=== PATIENT | female | born 1945 | race African-American/Black ===

== ENCOUNTER 2018-12-14 11:09 | Inpatient (IN) | payer MEDICARE ==
[~2018-12-14] VITALS: Ht 170.2 cm; Wt 80.8 kg
[~2018-12-14 11:09] MED LIST: ACC40 PO; CLON0.1T PO; FLUT1DIS3 INH
[2018-12-14] MEDS ORDERED: ALBUTEROL (0.083%) 2.5MG/3ML NEB HHN STA (11:36)
[2018-12-14] MEDS ORDERED: KETOROLAC 30MG/ML VIAL IV STA (11:36)
[2018-12-14 11:53] LABS: HEMOGLOBIN. 13.2 g/dL (12.0-16.0); MEAN CORPUSCULAR HEMOGLOBIN 37.9 pg (28.0-32.0); MEAN CORPUSCULAR VOLUME 111.9 fL (81.0-99.0); MEAN PLATELET VOLUME 8.5 fl (7.4-10.4); PLATELET 209 x1000/uL (130-400); RED BLOOD CELL COUNT 3.48 mill/uL (4.2-5.4); RED CELL DISTRIBUTION WIDTH 14.1 % (11.6-14.6)
[2018-12-14 11:56] LABS: CHLORIDE 104 mEq/L (98-107)
[2018-12-14 12:12] LABS: PLATELET ESTIMATE NORMAL
[2018-12-14] MEDS ORDERED: PIPERACILLIN/TAZ 3.375G PREMIX 50 ML IV ONE (12:30)
[2018-12-14] MEDS ORDERED: VANCOMYCIN 1 G PREMIX 200 ML IV ONE (12:30)
[2018-12-14] MEDS ORDERED: METHYLPREDNISOLONE SOD SUCC 125 MG/2 ML VIAL IV ONE (13:30)
[2018-12-14] MEDS ORDERED: MORPHINE SULFATE 4 MG/ML CPJ (NOT FOR IM USE) IV ONE (14:00)
[2018-12-14] MEDS ORDERED: DOCUSATE SODIUM 100MG CAPSULE PO PRN (14:15)
[2018-12-14] MEDS ORDERED: MAGNESIUM/ALUMINUM HYDROXIDE/SIMETHICONE 30ML UDC PO PRN (14:15)
[2018-12-14] MEDS ORDERED: ONDANSETRON HCL 4MG/2ML INJ IV PRN (14:15)
[2018-12-14] MEDS ORDERED: LORAZEPAM 0.5MG TABLET PO PRN (14:15)
[2018-12-14] MEDS ORDERED: DIPHENHYDRAMINE 50MG/ML VIAL IV PRN (14:15)
[2018-12-14] MEDS ORDERED: GUAIFENESIN 200MG/10ML SUGAR FREE UDC PO PRN (14:15)
[2018-12-14] MEDS ORDERED: ACETAMINOPHEN 325MG TABLET PO PRN (14:15)
[2018-12-14] MEDS ORDERED: NA PHOS,M-B/NA PHOS,DI-BA ENEMA 118ML PR PRN (14:15)
[2018-12-14] MEDS ORDERED: ACETAMINOPHEN 650MG SUPP PR PRN (14:15)
[2018-12-14] MEDS ORDERED: IPRATROPIUM/ALBUTEROL 0.5-3(2.5)MG/3ML NEB INH PRN (14:15)
[2018-12-14] MEDS ORDERED: DEXTROSE 50% WATER 50ML SYRINGE IV PRN (14:15)
[2018-12-14] MEDS ORDERED: IOHEXOL-350 100 ML BOTTLE ONE (15:17)
[2018-12-14 16:17] LABS: BG BASE EXCESS -4.2 mmol/L (-2.0-2.0); BG CARBOXYHEMOGLOBIN 1.5 % (0.5-1.5); BG DEOXYHEMOGLOBIN 5.2 % (0.0-5.0); BG FRACTION INSPIRED OXYGEN 28; BG HCO3 ACT 18.9 mmol/L (22.0-26.0); BG METHEMOGLOBIN 0.2 % (0.0-1.5); BG OXYGEN SATURATION 94.7 % (92.0-98.5); BG OXYHEMOGLOBIN 93.1 % (94.0-97.0); BG PCO2 29.3 mmHg (35.0-45.0); BG PH 7.428 (7.350-7.450); BG PO2 76.4 mmHg (75.0-100.0); BG SAMPLE SITE RIGHT BRACHIAL; BG TOTAL HEMOGLOBIN 13.5 g/dL (12.0-18.0); BG VENT MODE NASAL CANNULA
[2018-12-14 16:17] LABS: PROTHROMBIN TIME 10.5 sec (9.6-11.0)
[2018-12-14 16:37] VITALS: BP 140/68
[2018-12-14] MEDS: DEXT 5%/0.45% NACL 1000ML 1,000 ML IV SCH (16:39)
[2018-12-14] MEDS: METHYLPREDNISOLONE SOD SUCC 40 MG/ML VIAL IV SCH (16:39)
[2018-12-14] MEDS: BLOOD SUGAR DIAGNOSTIC STRIP TEST SCH ×2 (16:57→21:07)
[2018-12-14] MEDS: IPRATROPIUM/ALBUTEROL 0.5-3(2.5)MG/3ML NEB INH SCH ×2 (17:09→20:37)
[2018-12-14] MEDS: INSULIN LISPRO 100 UNITS/ML SUBCUT SCH ×2 (17:20→21:07)
[2018-12-14 18:00] VITALS: BP 133/74
[2018-12-14] MEDS: PIPERACILLIN/TAZ 2.25G PREMIX 50 ML IV SCH (18:44)
[2018-12-14 20:00] VITALS: BP 140/67
[2018-12-14] MEDS: VANCOMYCIN 750 MG PREMIX 150 ML IV SCH (21:09)
[2018-12-14 22:00] VITALS: BP 135/68
[2018-12-15] VITALS (12 sets, daily range): BP systolic 81–124; BP diastolic 47–64
[2018-12-15] MEDS: PIPERACILLIN/TAZ 2.25G PREMIX 50 ML IV SCH ×5 (00:07→23:16)
[2018-12-15] MEDS: METHYLPREDNISOLONE SOD SUCC 40 MG/ML VIAL IV SCH ×3 (00:07→20:12)
[2018-12-15] MEDS: IPRATROPIUM/ALBUTEROL 0.5-3(2.5)MG/3ML NEB INH SCH ×6 (00:20→21:07)
[2018-12-15 06:27] LABS: HEMATOCRIT. 35.4 % (36.0-48.0); HEMOGLOBIN. 12.4 g/dL (12.0-16.0); MEAN CORPUSCULAR HEMOGLOBIN 38.6 pg (28.0-32.0); MEAN CORPUSCULAR VOLUME 110.2 fL (81.0-99.0); MEAN PLATELET VOLUME 8.6 fl (7.4-10.4); PLATELET 161 x1000/uL (130-400); RED BLOOD CELL COUNT 3.21 mill/uL (4.2-5.4); RED CELL DISTRIBUTION WIDTH 13.9 % (11.6-14.6)
[2018-12-15] MEDS: BLOOD SUGAR DIAGNOSTIC STRIP TEST SCH ×4 (06:44→20:15)
[2018-12-15 07:03] LABS: CHLORIDE 100 mEq/L (98-107)
[2018-12-15 07:19] LABS: T4 FREE 1.21 ng/dL (0.76-1.46)
[2018-12-15 07:20] LABS: HDL CHOLESTEROL 107 mg/dL (40-59)
[2018-12-15 07:21] LABS: LDL CHOLESTEROL 42 mg/dL (5-100)
[2018-12-15] MEDS: INSULIN LISPRO 100 UNITS/ML SUBCUT SCH ×4 (08:51→20:15)
[2018-12-15] MEDS ORDERED: INSULIN GLARGINE UD 100 UNITS/ML SYR SUBCUT SCH (11:00)
[2018-12-15] MEDS: HYDROCODONE/ACETAMINOPHEN 5/325MG TABLET PO PRN ×2 (13:38→21:25)
[2018-12-15 13:42] LABS: PLATELET ESTIMATE NORMAL
[2018-12-15] MEDS: VANCOMYCIN 750 MG PREMIX 150 ML IV SCH (16:13)
[2018-12-15 16:23] LABS: BG BASE EXCESS 2.2 mmol/L (-2.0-2.0); BG CARBOXYHEMOGLOBIN 0.1 % (0.5-1.5); BG DEOXYHEMOGLOBIN 5.9 % (0.0-5.0); BG FRACTION INSPIRED OXYGEN 28; BG HCO3 ACT 25.8 mmol/L (22.0-26.0); BG METHEMOGLOBIN 0.2 % (0.0-1.5); BG OXYGEN SATURATION 94.1 % (92.0-98.5); BG OXYHEMOGLOBIN 93.8 % (94.0-97.0); BG PCO2 36.7 mmHg (35.0-45.0); BG PH 7.465 (7.350-7.450); BG PO2 68.6 mmHg (75.0-100.0); BG SAMPLE SITE RIGHT BRACHIAL; BG TOTAL HEMOGLOBIN 12.5 g/dL (12.0-18.0); BG VENT MODE NASAL CANNULA
[2018-12-15] MEDS: ATORVASTATIN CALCIUM 20MG TABLET PO SCH (20:12)
[2018-12-16] VITALS (16 sets, daily range): BP systolic 90–147; BP diastolic 45–74
[2018-12-16] MEDS: IPRATROPIUM/ALBUTEROL 0.5-3(2.5)MG/3ML NEB INH SCH ×5 (04:37→20:58)
[2018-12-16] MEDS ORDERED: PIPERACILLIN/TAZ 2.25G PREMIX 50 ML IV SCH (06:00)
[2018-12-16 06:21] LABS: HEMATOCRIT. 31.7 % (36.0-48.0); HEMOGLOBIN. 10.9 g/dL (12.0-16.0); MEAN CORPUSCULAR HEMOGLOBIN 37.5 pg (28.0-32.0); MEAN CORPUSCULAR VOLUME 109.7 fL (81.0-99.0); MEAN PLATELET VOLUME 8.5 fl (7.4-10.4); PLATELET 143 x1000/uL (130-400); RED CELL DISTRIBUTION WIDTH 14.1 % (11.6-14.6)
[2018-12-16] MEDS: BLOOD SUGAR DIAGNOSTIC STRIP TEST SCH ×4 (06:41→21:00)
[2018-12-16] MEDS: INSULIN LISPRO 100 UNITS/ML SUBCUT SCH ×4 (08:20→21:00)
[2018-12-16] MEDS: METHYLPREDNISOLONE SOD SUCC 40 MG/ML VIAL IV SCH ×2 (08:20→21:08)
[2018-12-16] MEDS: VANCOMYCIN 750 MG PREMIX 150 ML IV SCH (09:23)
[2018-12-16] MEDS ORDERED: INSULIN GLARGINE UD 100 UNITS/ML SYR SUBCUT SCH ×2 (10:00)
[2018-12-16 11:49] LABS: PLATELET ESTIMATE NORMAL
[2018-12-16] MEDS: CEFTRIAXONE 2 G in DEXTROSE 5% WATER 50 ML IV SCH (13:46)
[2018-12-16] MEDS: ATORVASTATIN CALCIUM 20MG TABLET PO SCH (21:08)
[2018-12-16] MEDS: HYDROCODONE/ACETAMINOPHEN 5/325MG TABLET PO PRN (21:13)
[2018-12-16] MEDS: DEXT 5%/0.45% NACL 1000ML 1,000 ML IV SCH (22:40)
[2018-12-17] VITALS (18 sets, daily range): BP systolic 111–159; BP diastolic 58–111
[2018-12-17] MEDS: IPRATROPIUM/ALBUTEROL 0.5-3(2.5)MG/3ML NEB INH SCH ×5 (00:47→20:49)
[2018-12-17 07:13] LABS: HEMOGLOBIN. 12.8 g/dL (12.0-16.0); MEAN CORPUSCULAR VOLUME 110.2 fL (81.0-99.0); MEAN PLATELET VOLUME 8.6 fl (7.4-10.4); PLATELET 172 x1000/uL (130-400); RED BLOOD CELL COUNT 3.27 mill/uL (4.2-5.4); RED CELL DISTRIBUTION WIDTH 14.1 % (11.6-14.6)
[2018-12-17] MEDS: BLOOD SUGAR DIAGNOSTIC STRIP TEST SCH ×4 (07:30→21:52)
[2018-12-17] MEDS: INSULIN LISPRO 100 UNITS/ML SUBCUT SCH ×4 (08:00→21:00)
[2018-12-17] MEDS: METHYLPREDNISOLONE SOD SUCC 40 MG/ML VIAL IV SCH ×2 (08:34→21:07)
[2018-12-17] MEDS: CEFTRIAXONE 2 G in DEXTROSE 5% WATER 50 ML IV SCH (08:34)
[2018-12-17 14:20] LABS: PLATELET ESTIMATE NORMAL
[2018-12-17] MEDS ORDERED: VANCOMYCIN 750 MG PREMIX 150 ML IV SCH (18:00)
[2018-12-17] MEDS: HYDROCODONE/ACETAMINOPHEN 5/325MG TABLET PO PRN (19:01)
[2018-12-17] MEDS: DEXT 5%/0.45% NACL 1000ML 1,000 ML IV SCH (19:02)
[2018-12-17] MEDS: ATORVASTATIN CALCIUM 20MG TABLET PO SCH (21:07)
[2018-12-18] VITALS (14 sets, daily range): BP systolic 111–160; BP diastolic 50–101
[2018-12-18] MEDS: IPRATROPIUM/ALBUTEROL 0.5-3(2.5)MG/3ML NEB INH SCH ×5 (00:28→20:57)
[2018-12-18] MEDS: INSULIN LISPRO 100 UNITS/ML SUBCUT SCH ×4 (08:00→21:00)
[2018-12-18] MEDS: BLOOD SUGAR DIAGNOSTIC STRIP TEST SCH ×4 (08:23→21:42)
[2018-12-18] MEDS: CEFTRIAXONE 2 G in DEXTROSE 5% WATER 50 ML IV SCH (09:28)
[2018-12-18] MEDS: METHYLPREDNISOLONE SOD SUCC 40 MG/ML VIAL IV SCH (09:28)
[2018-12-18] MEDS: DEXT 5%/0.45% NACL 1000ML 1,000 ML IV SCH (09:28)
[2018-12-18] MEDS: HYDROCODONE/ACETAMINOPHEN 5/325MG TABLET PO PRN ×2 (10:54→21:52)
[2018-12-18] MEDS: SODIUM CHLORIDE 0.9% 1,000 ML IV SCH (11:34)
[2018-12-18] MEDS ORDERED: SODIUM BICARBONATE 4% (2.4MEQ) 5ML VIAL IV ONE (13:54)
[2018-12-18] MEDS ORDERED: LIDOCAINE HCL 1% 20ML VIAL (Pyxis) INJ ONE (13:55)
[2018-12-18] MEDS ORDERED: LORAZEPAM 0.5MG TABLET PO PRN (14:15)
[2018-12-18] MEDS: CLONIDINE 0.1MG TABLET PO SCH (21:47)
[2018-12-18] MEDS: ATORVASTATIN CALCIUM 20MG TABLET PO SCH (21:47)
[2018-12-19] VITALS (15 sets, daily range): BP systolic 124–174; BP diastolic 53–99
[2018-12-19] MEDS: IPRATROPIUM/ALBUTEROL 0.5-3(2.5)MG/3ML NEB INH SCH ×6 (01:00→21:22)
[2018-12-19] MEDS: BLOOD SUGAR DIAGNOSTIC STRIP TEST SCH ×2 (06:00→12:58)
[2018-12-19] MEDS: CLONIDINE 0.1MG TABLET PO SCH ×3 (06:27→21:22)
[2018-12-19] MEDS: SODIUM CHLORIDE 0.9% 1,000 ML IV SCH (06:28)
[2018-12-19 06:54] LABS: HEMATOCRIT 36.4 % (36.0-48.0); HEMOGLOBIN 12.5 g/dL (12.0-16.0); MEAN CORPUSCULAR HEMOGLOBIN 38.2 pg (28.0-32.0); PLATELET 113 x1000/uL (130-400); RED BLOOD CELL COUNT 3.28 mill/uL (4.2-5.4); RED CELL DISTRIBUTION WIDTH 13.9 % (11.6-14.6)
[2018-12-19] MEDS: INSULIN LISPRO 100 UNITS/ML SUBCUT SCH ×2 (08:00→12:58)
[2018-12-19] MEDS ORDERED: POTASSIUM CHLORIDE 20MEQ TABLET SR PO SCH (08:45)
[2018-12-19] MEDS: CEFTRIAXONE 2 G in DEXTROSE 5% WATER 50 ML IV SCH (08:55)
[2018-12-19] MEDS ORDERED: METHYLPREDNISOLONE SOD SUCC 40 MG/ML VIAL IV SCH (09:00)
[2018-12-19 17:34] LABS: BG BASE EXCESS -2.4 mmol/L (-2.0-2.0); BG CARBOXYHEMOGLOBIN 0.1 % (0.5-1.5); BG DEOXYHEMOGLOBIN 5.6 % (0.0-5.0); BG FRACTION INSPIRED OXYGEN 21; BG HCO3 ACT 21.3 mmol/L (22.0-26.0); BG METHEMOGLOBIN 0.2 % (0.0-1.5); BG OXYGEN SATURATION 94.4 % (92.0-98.5); BG OXYHEMOGLOBIN 94.1 % (94.0-97.0); BG PCO2 33.6 mmHg (35.0-45.0); BG PO2 74.1 mmHg (75.0-100.0); BG SAMPLE SITE RIGHT BRACHIAL; BG TOTAL HEMOGLOBIN 12.7 g/dL (12.0-18.0); BG VENT MODE ROOM AIR
[2018-12-19] MEDS: ATORVASTATIN CALCIUM 20MG TABLET PO SCH (21:22)
[2018-12-20] VITALS (15 sets, daily range): BP systolic 122–182; BP diastolic 57–103
[2018-12-20] MEDS: CLONIDINE 0.1MG TABLET PO SCH ×2 (03:46→16:19)
[2018-12-20] MEDS: IPRATROPIUM/ALBUTEROL 0.5-3(2.5)MG/3ML NEB INH SCH ×6 (04:32→16:48)
[2018-12-20 06:52] LABS: HEMATOCRIT 31.9 % (36.0-48.0); HEMOGLOBIN 11.1 g/dL (12.0-16.0); MEAN CORPUSCULAR HEMOGLOBIN 38.8 pg (28.0-32.0); MEAN CORPUSCULAR VOLUME 111.2 fL (81.0-99.0); PLATELET 108 x1000/uL (130-400); RED BLOOD CELL COUNT 2.87 mill/uL (4.2-5.4)
[2018-12-20] MEDS: CEFTRIAXONE 2 G in DEXTROSE 5% WATER 50 ML IV SCH (08:33)
[2018-12-20] MEDS ORDERED: PREDNISONE 20MG TABLET PO SCH (09:00)
[2018-12-21] MEDS ORDERED: CEFTRIAXONE 1 G PREMIX 50 ML IV SCH (09:00)
[2018-12-24] MEDS ORDERED: PREDNISONE 20MG TABLET PO SCH (09:00)
[2018-12-28] MEDS ORDERED: PREDNISONE 10MG TABLET PO SCH (09:00)
== END 2018-12-20 20:35 | DRG 871 ==
LOC: ER 11:19 → 5EST 13:55 → EDBEDREQ 14:05 → EDBEDREQTM 14:06 → EDBEDREQSVC 14:12 → EDBEDREQ 14:12 → CANRESERV 14:31 → ENRESERV 14:31 → 5EST 16:23
PROVIDERS: ADMIT Internal Medicine; ATTEND Internal Medicine
DX: A40.3 Sepsis due to Streptococcus pneumoniae (principal); J96.01 Acute respiratory failure with hypoxia; J45.901 Unspecified asthma with (acute) exacerbation; N17.9 Acute kidney failure, unspecified; R17 Unspecified jaundice; N18.9 Chronic kidney disease, unspecified; I71.2 Thoracic aortic aneurysm, without rupture; J43.9 Emphysema, unspecified; R06.03 Acute respiratory distress; R73.9 Hyperglycemia, unspecified; E78.5 Hyperlipidemia, unspecified; F17.210 Nicotine dependence, cigarettes, uncomplicated; R26.9 Unspecified abnormalities of gait and mobility; I13.10 Hypertensive heart and chronic kidney disease without heart failure, with stage 1 through stage 4 chronic kidney disease, or unspecified chronic kidney disease; Z86.73 Personal history of transient ischemic attack (TIA), and cerebral infarction without residual deficits; Z91.19 Patient's noncompliance with other medical treatment and regimen; Z86.711 Personal history of pulmonary embolism; Z80.42 Family history of malignant neoplasm of prostate; Z82.49 Family history of ischemic heart disease and other diseases of the circulatory system; Z86.79 Personal history of other diseases of the circulatory system
CPT/HCPCS: 36415; 36600; 71045; 71275; 73521; 76700; 80048; 80061; 80202; 82375; 82805; 82962; 83036; 83880; 84439; 84443; 84484; 85027; 87077; 87186; 93005; 93306; 93970; 94640; 96374; 99285; J0696; J1815; J1885; J2270; J2405; J2543; J2920; J2930; J3370; J3490; J7030; J7042; J7050; J7060; J7512; J7611; J7620; Q9967

== ENCOUNTER 2020-02-18 00:37 | Inpatient (IN) | payer MEDICARE, MEDICAID ==
[~2020-02-18] VITALS: Ht 170.2 cm; Wt 72.1 kg
[~2020-02-18 00:37] MED LIST changes: -ACC40 PO; -FLUT1DIS3 INH
[2020-02-18] MEDS ORDERED: MORPHINE SULFATE 10 MG/ML CPJ IV ONE (02:00)
[2020-02-18] MEDS ORDERED: MORPHINE SULFATE 4 MG/ML CPJ (NOT FOR IM USE) IV SCH (02:45)
[2020-02-18 03:14] LABS: HEMATOCRIT. 34.6 % (36.0-48.0); HEMOGLOBIN. 11.8 g/dL (12.0-16.0); MEAN CORPUSCULAR HEMOGLOBIN 34.2 pg (28.0-32.0); MEAN CORPUSCULAR VOLUME 100.5 fL (81.0-99.0); PLATELET 222 x1000/uL (130-400); RED BLOOD CELL COUNT 3.44 mill/uL (4.2-5.4); RED CELL DISTRIBUTION WIDTH 15.3 % (11.6-14.6)
[2020-02-18 03:19] LABS: CHLORIDE 112 mEq/L (98-107)
[2020-02-18 03:20] LABS: INR 1.3; PROTHROMBIN TIME 13.2 sec (9.6-11.0)
[2020-02-18 03:23] LABS: ETHANOL BLOOD 91 mg/dL
[2020-02-18] MEDS ORDERED: AMLODIPINE 5MG TABLET PO ONE (04:00)
[2020-02-18] MEDS ORDERED: MORPHINE SULFATE 4 MG/ML CPJ (NOT FOR IM USE) IV ONE (04:00)
[2020-02-18] MEDS ORDERED: HYDRALAZINE 20MG/ML VIAL IV SCH (05:30)
[2020-02-18] MEDS ORDERED: ONDANSETRON HCL 4MG/2ML INJ IV ONE (05:30)
[2020-02-18] MEDS ORDERED: SODIUM CHLORIDE 0.9% 500 ML IV ONE (05:45)
[2020-02-18] MEDS ORDERED: METOCLOPRAMIDE HCL 10MG/2ML VIAL IV ONE (06:30)
[2020-02-18] MEDS ORDERED: MORPHINE SULFATE 4 MG/ML CPJ (NOT FOR IM USE) IV PRN (06:30)
[2020-02-18 08:18] LABS: PLATELET ESTIMATE NORMAL
[2020-02-18] MEDS ORDERED: ACETAMINOPHEN 650MG SUPP PR PRN (10:45)
[2020-02-18] MEDS ORDERED: MAGNESIUM/ALUMINUM HYDROXIDE/SIMETHICONE 30ML UDC PO PRN (10:45)
[2020-02-18] MEDS ORDERED: IPRATROPIUM/ALBUTEROL 0.5-3(2.5)MG/3ML NEB NEB PRN (10:45)
[2020-02-18] MEDS ORDERED: GUAIFENESIN 200MG/10ML SUGAR FREE UDC PO PRN (10:45)
[2020-02-18] MEDS ORDERED: LORAZEPAM 0.5MG TABLET PO PRN (10:45)
[2020-02-18] MEDS ORDERED: NA PHOS,M-B/NA PHOS,DI-BA ENEMA 118ML PR PRN (10:45)
[2020-02-18] MEDS ORDERED: DOCUSATE SODIUM 100MG CAPSULE PO PRN (10:45)
[2020-02-18] MEDS ORDERED: ACETAMINOPHEN 325MG TABLET PO PRN (10:45)
[2020-02-18] MEDS: DEXT 5%/0.45% NACL 1000ML 1,000 ML IV SCH (11:23)
[2020-02-18] MEDS: CLONIDINE 0.1MG TABLET PO PRN (11:26)
[2020-02-18] MEDS ORDERED: ENOXAPARIN 40MG/0.4ML SYR SUBCUT SCH (12:00)
[2020-02-18] MEDS: AMLODIPINE 10MG TABLET PO SCH (12:07)
[2020-02-18] MEDS: HYDROCODONE/ACETAMINOPHEN 5/325MG TABLET PO PRN (12:08)
[2020-02-18] MEDS: LOSARTAN POTASSIUM 50 MG TABLET PO SCH (12:15)
[2020-02-18 14:32] VITALS: BP 147/71
[2020-02-18 16:00] VITALS: BP 139/73
[2020-02-18] MEDS: MORPHINE SULFATE 2 MG/ML CPJ (NOT FOR IM USE) IV PRN ×2 (17:11→21:18)
[2020-02-18 17:31] LABS: CREATINE KINASE 63 IU/L (26-192)
[2020-02-18 17:32] LABS: CREATINE KINASE MB FRACTION < 1.0 ng/mL (0.5-3.6)
[2020-02-18] MEDS ORDERED: RIVA10TA MT (17:45)
[2020-02-18 18:00] VITALS: BP 151/73
[2020-02-18] MEDS ORDERED: HYDRALAZINE 20MG/ML VIAL IV PRN (18:15)
[2020-02-18] MEDS: ONDANSETRON HCL 4MG/2ML INJ IV PRN (19:59)
[2020-02-18 20:00] VITALS: BP 156/68
[2020-02-18 20:30] LABS: CLARITY URINE CLOUDY (CLEAR); COLOR URINE YELLOW (YELLOW); KETONES URINE NEGATIVE (NEGATIVE); LEUKOCYTE ESTERASE URINE 2+ (NEGATIVE); NITRITE URINE POSITIVE (NEGATIVE); OCCULT BLOOD URINE 2+ (NEGATIVE); PROTEIN URINE 2+ (NEGATIVE); SPECIFIC GRAVITY URINE 1.018 (1.005-1.030)
[2020-02-18] MEDS: FAMOTIDINE 20MG TABLET PO SCH (21:11)
[2020-02-18 21:16] LABS: *BARBITURATES SCREEN URINE NEGATIVE (NEGATIVE); *BENZODIAZEPINES SCREEN URINE NEGATIVE (NEGATIVE); *COCAINE SCREEN URINE NEGATIVE (NEGATIVE); CANNABINOID URINE SCREEN NEGATIVE (NEGATIVE); METHADONE URINE SCREEN NEGATIVE (NEGATIVE); OPIATES URINE SCREEN PRESUMTIVE POSITIVE (NEGATIVE); PHENCYCLIDINE URINE SCREEN NEGATIVE (NEGATIVE)
[2020-02-18 21:17] LABS: *AMPHETAMINES SCREEN URINE NEGATIVE (NEGATIVE)
[2020-02-18 23:55] LABS: CREATINE KINASE 64 IU/L (26-192); CREATINE KINASE MB FRACTION < 1.0 ng/mL (0.5-3.6)
[2020-02-19] VITALS: BP 134/51
[2020-02-19] MEDS: DEXT 5%/0.45% NACL 1000ML 1,000 ML IV SCH ×2 (00:15→14:57)
[2020-02-19] MEDS: HYDROCODONE/ACETAMINOPHEN 5/325MG TABLET PO PRN (00:20)
[2020-02-19] MEDS: MORPHINE SULFATE 2 MG/ML CPJ (NOT FOR IM USE) IV PRN ×3 (01:35→13:28)
[2020-02-19 04:00] VITALS: BP 156/66
[2020-02-19] MEDS: ONDANSETRON HCL 4MG/2ML INJ IV PRN (06:20)
[2020-02-19 06:46] LABS: BASOPHILS % 0.4 % (0.0-2.0); EOSINOPHILS % 0.1 % (0.0-5.0); HEMOGLOBIN. 11.2 g/dL (12.0-16.0); LYMPHOCYTES % 8.4 % (20.0-50.0); MEAN CORPUSCULAR HEMOGLOBIN 34.4 pg (28.0-32.0); MEAN CORPUSCULAR VOLUME 101.2 fL (81.0-99.0); MONOCYTES % 5.4 % (2.0-8.0); NEUTROPHILS % 85.7 % (40.0-76.0); PLATELET 208 x1000/uL (130-400); RED BLOOD CELL COUNT 3.26 mill/uL (4.2-5.4); RED CELL DISTRIBUTION WIDTH 15.3 % (11.6-14.6)
[2020-02-19 07:02] LABS: CHLORIDE 104 mEq/L (98-107)
[2020-02-19 07:22] LABS: LDL CHOLESTEROL 131 mg/dL (5-100)
[2020-02-19 07:29] LABS: HDL CHOLESTEROL 104 mg/dL (40-59)
[2020-02-19 08:00] VITALS: BP 170/63
[2020-02-19] MEDS: LOSARTAN POTASSIUM 50 MG TABLET PO SCH (09:30)
[2020-02-19] MEDS: CLONIDINE 0.1MG TABLET PO PRN (09:31)
[2020-02-19] MEDS: AMLODIPINE 10MG TABLET PO SCH (09:31)
[2020-02-19 12:00] VITALS: BP 140/59
[2020-02-19] MEDS ORDERED: POTASSIUM CHLORIDE INJ 40 MEQ in DEXT 5% WATER 250 ML IV NR (13:30)
[2020-02-19] MEDS ORDERED: MORPHINE SULFATE/PF 1MG/ML 10ML AMP ONE (15:28)
[2020-02-19] MEDS ORDERED: ROPIVACAINE HCL 10MG/ML 20 ML VIAL EPI ONE (15:29)
[2020-02-19] MEDS ORDERED: EPINEPHRINE 1:1000 1 MG/ML AMP ONE (15:29)
[2020-02-19] MEDS ORDERED: BACITRACIN 50,000 UNITS/VIAL ONE (15:29)
[2020-02-19] MEDS ORDERED: VANCOMYCIN HCL 1 GM/VIAL ONE (15:29)
[2020-02-19] MEDS ORDERED: KETOROLAC 30MG/ML VIAL ONE (15:30)
[2020-02-19] MEDS ORDERED: MIDAZOLAM HCL 2 MG/2 ML VIAL ONE (16:16)
[2020-02-19] MEDS ORDERED: PROPOFOL 200MG/20ML VIAL IV ONE (16:16)
[2020-02-19] MEDS ORDERED: FENTANYL CITRATE/PF 50MCG/ML 2ML VIAL ONE (16:16)
[2020-02-19] MEDS ORDERED: SUCCINYLCHOLINE CHLORIDE 200MG/10ML IV ONE (16:18)
[2020-02-19] MEDS ORDERED: CEFAZOLIN SODIUM 1000MG/VIAL ONE (16:33)
[2020-02-19] MEDS ORDERED: TRANEXAMIC ACID 1,000 MG in SODIUM CHLORIDE 0.9% 100 ML IV NR (16:50)
[2020-02-19] MEDS ORDERED: HYDROMORPHONE HCL/PF 2MG/ML CPJ IV PRN (17:45)
[2020-02-19] MEDS ORDERED: ONDANSETRON HCL 4MG/2ML INJ IV PRN (17:45)
[2020-02-19] MEDS ORDERED: MEPERIDINE HCL/PF 25MG/ML CPJ IV PRN (17:45)
[2020-02-19] MEDS ORDERED: LABETALOL 5MG/ML SYR 20 MG/4 ML SYRINGE IV PRN (17:45)
[2020-02-19] MEDS ORDERED: CEFAZOLIN 1000MG PREMIX 50 ML IV SCH (18:30)
[2020-02-19] MEDS ORDERED: KETOROLAC 30MG/ML VIAL IV PRN (18:30)
[2020-02-19 20:00] VITALS: BP 110/56
[2020-02-19] MEDS: ATORVASTATIN CALCIUM 40MG TABLET PO SCH (20:35)
[2020-02-19] MEDS: FAMOTIDINE 20MG TABLET PO SCH (20:35)
[2020-02-19] MEDS: CEFAZOLIN 1000MG PREMIX 50 ML IV SCH (23:48)
[2020-02-20] VITALS: BP 139/61
[2020-02-20] MEDS: DEXT 5%/0.45% NACL 1000ML 1,000 ML IV SCH ×2 (02:45→06:04)
[2020-02-20 04:00] VITALS: BP 148/60
[2020-02-20] MEDS: CEFAZOLIN 1000MG PREMIX 50 ML IV SCH ×3 (05:11→22:36)
[2020-02-20] MEDS: MORPHINE SULFATE 2 MG/ML CPJ (NOT FOR IM USE) IV PRN ×5 (05:19→22:57)
[2020-02-20 07:09] LABS: HEMATOCRIT 29.9 % (36.0-48.0); HEMOGLOBIN 10.1 g/dL (12.0-16.0); MEAN CORPUSCULAR HEMOGLOBIN 34.3 pg (28.0-32.0); MEAN CORPUSCULAR VOLUME 101.6 fL (81.0-99.0); PLATELET 175 x1000/uL (130-400); RED BLOOD CELL COUNT 2.94 mill/uL (4.2-5.4); RED CELL DISTRIBUTION WIDTH 15.3 % (11.6-14.6)
[2020-02-20 08:00] VITALS: BP 135/68
[2020-02-20] MEDS: LOSARTAN POTASSIUM 50 MG TABLET PO SCH (09:55)
[2020-02-20] MEDS: AMLODIPINE 10MG TABLET PO SCH (09:55)
[2020-02-20 12:00] VITALS: BP 110/62
[2020-02-20 16:00] VITALS: BP 140/58
[2020-02-20 20:00] VITALS: BP 153/62
[2020-02-20] MEDS: FAMOTIDINE 20MG TABLET PO SCH (20:06)
[2020-02-20] MEDS: ATORVASTATIN CALCIUM 40MG TABLET PO SCH (20:06)
[2020-02-20] MEDS: POLYVINYL ALCOHOL OPHTH DROPS 15ML BOTHEYE SCH (22:49)
[2020-02-20] MEDS ORDERED: IOHEXOL-350 100 ML BOTTLE ONE (22:49)
[2020-02-21] VITALS: BP 169/60
[2020-02-21] MEDS: MORPHINE SULFATE 2 MG/ML CPJ (NOT FOR IM USE) IV PRN ×4 (03:12→20:09)
[2020-02-21] MEDS: POLYVINYL ALCOHOL OPHTH DROPS 15ML BOTHEYE SCH ×5 (03:12→23:59)
[2020-02-21 04:00] VITALS: BP 164/57
[2020-02-21] MEDS: DEXT 5%/0.45% NACL 1000ML 1,000 ML IV SCH (05:25)
[2020-02-21] MEDS: CEFAZOLIN 1000MG PREMIX 50 ML IV SCH ×2 (05:47→14:18)
[2020-02-21] MEDS: HYDROCODONE/ACETAMINOPHEN 5/325MG TABLET PO PRN ×3 (05:59→23:30)
[2020-02-21 07:38] LABS: BASOPHILS % 0.4 % (0.0-2.0); HEMATOCRIT. 29.9 % (36.0-48.0); HEMOGLOBIN. 10.3 g/dL (12.0-16.0); LYMPHOCYTES % 10.3 % (20.0-50.0); MEAN CORPUSCULAR HEMOGLOBIN 34.9 pg (28.0-32.0); MEAN CORPUSCULAR VOLUME 101.5 fL (81.0-99.0); MEAN PLATELET VOLUME 8.1 fl (7.4-10.4); MONOCYTES % 7.4 % (2.0-8.0); NEUTROPHILS % 79.9 % (40.0-76.0); PLATELET 178 x1000/uL (130-400); RED BLOOD CELL COUNT 2.94 mill/uL (4.2-5.4); RED CELL DISTRIBUTION WIDTH 15.1 % (11.6-14.6)
[2020-02-21 07:53] LABS: CHLORIDE 104 mEq/L (98-107)
[2020-02-21 08:00] VITALS: BP 143/66
[2020-02-21] MEDS: LOSARTAN POTASSIUM 50 MG TABLET PO SCH (08:56)
[2020-02-21] MEDS: AMLODIPINE 10MG TABLET PO SCH (08:56)
[2020-02-21 12:00] VITALS: BP 156/61
[2020-02-21] MEDS ORDERED: LOSA100T3 MT (15:31)
[2020-02-21] MEDS ORDERED: LIP40 MT (15:31)
[2020-02-21] MEDS ORDERED: RIVA10TA PO (15:31)
[2020-02-21] MEDS ORDERED: AMLO10TA4 MT (15:31)
[2020-02-21] MEDS ORDERED: ALBU90AE INH (15:31)
[2020-02-21] MEDS ORDERED: HYDR-4001 MT (15:31)
[2020-02-21] MEDS ORDERED: DOCU-138 MT (15:31)
[2020-02-21 16:00] VITALS: BP 152/73
[2020-02-21] MEDS: RIVAROXABAN 10 MG TABLET PO SCH (18:43)
[2020-02-21 20:00] VITALS: BP 184/89
[2020-02-21] MEDS: ATORVASTATIN CALCIUM 40MG TABLET PO SCH (20:08)
[2020-02-21] MEDS: FAMOTIDINE 20MG TABLET PO SCH (20:09)
[2020-02-22] VITALS: BP 128/65
[2020-02-22] MEDS: CEFAZOLIN 1000MG PREMIX 50 ML IV SCH (00:03)
[2020-02-22] MEDS: MORPHINE SULFATE 2 MG/ML CPJ (NOT FOR IM USE) IV PRN ×4 (01:12→20:19)
[2020-02-22 04:00] VITALS: BP 151/67
[2020-02-22] MEDS: POLYVINYL ALCOHOL OPHTH DROPS 15ML BOTHEYE SCH ×3 (06:00→18:09)
[2020-02-22 06:55] LABS: CHLORIDE 104 mEq/L (98-107)
[2020-02-22 07:16] LABS: HEMOGLOBIN 10.4 g/dL (12.0-16.0); MEAN CORPUSCULAR HEMOGLOBIN 35.2 pg (28.0-32.0); MEAN CORPUSCULAR VOLUME 101.5 fL (81.0-99.0); PLATELET 171 x1000/uL (130-400); RED BLOOD CELL COUNT 2.96 mill/uL (4.2-5.4); RED CELL DISTRIBUTION WIDTH 14.7 % (11.6-14.6)
[2020-02-22 08:00] VITALS: BP 164/65
[2020-02-22] MEDS: LOSARTAN POTASSIUM 100 MG TABLET PO SCH (09:20)
[2020-02-22] MEDS: AMLODIPINE 10MG TABLET PO SCH (09:20)
[2020-02-22 12:00] VITALS: BP 153/81
[2020-02-22] MEDS ORDERED: POTASSIUM CHLORIDE 20MEQ TABLET SR PO SCH (14:00)
[2020-02-22 16:00] VITALS: BP 152/64
[2020-02-22] MEDS: RIVAROXABAN 10 MG TABLET PO SCH (16:04)
[2020-02-22 20:00] VITALS: BP 179/65
[2020-02-22] MEDS: ONDANSETRON HCL 4MG/2ML INJ IV PRN (20:17)
[2020-02-22] MEDS: CLONIDINE 0.1MG TABLET PO PRN (20:18)
[2020-02-22] MEDS: FAMOTIDINE 20MG TABLET PO SCH (20:19)
[2020-02-22] MEDS: ATORVASTATIN CALCIUM 40MG TABLET PO SCH (20:19)
[2020-02-22] MEDS: HYDROCODONE/ACETAMINOPHEN 5/325MG TABLET PO PRN (22:41)
[2020-02-23] VITALS: BP 118/66
[2020-02-23] MEDS: MORPHINE SULFATE 2 MG/ML CPJ (NOT FOR IM USE) IV PRN ×2 (01:51→07:28)
[2020-02-23 04:00] VITALS: BP 116/60
[2020-02-23] MEDS: POLYVINYL ALCOHOL OPHTH DROPS 15ML BOTHEYE SCH ×4 (06:00→18:06)
[2020-02-23 08:00] VITALS: BP 136/64
[2020-02-23] MEDS: AMLODIPINE 10MG TABLET PO SCH (09:22)
[2020-02-23] MEDS: LOSARTAN POTASSIUM 100 MG TABLET PO SCH (09:23)
[2020-02-23 10:18] LABS: HEMATOCRIT 31.5 % (36.0-48.0); HEMOGLOBIN 10.9 g/dL (12.0-16.0); MEAN CORPUSCULAR HEMOGLOBIN 34.9 pg (28.0-32.0); MEAN CORPUSCULAR VOLUME 100.4 fL (81.0-99.0); PLATELET 249 x1000/uL (130-400); RED BLOOD CELL COUNT 3.13 mill/uL (4.2-5.4); RED CELL DISTRIBUTION WIDTH 14.8 % (11.6-14.6)
[2020-02-23 10:24] LABS: CHLORIDE 104 mEq/L (98-107)
[2020-02-23 12:00] VITALS: BP_SYST 134; BP_SYST 136; BP_DIAS 64; BP_DIAS 69
[2020-02-23] MEDS: HYDROCODONE/ACETAMINOPHEN 5/325MG TABLET PO PRN ×2 (13:06→20:32)
[2020-02-23] MEDS: DOCUSATE SODIUM 250MG CAPSULE PO SCH (15:15)
[2020-02-23 16:00] VITALS: BP 136/66
[2020-02-23] MEDS: RIVAROXABAN 10 MG TABLET PO SCH (18:06)
[2020-02-23 20:00] VITALS: BP 127/57
[2020-02-23] MEDS: FAMOTIDINE 20MG TABLET PO SCH (20:31)
[2020-02-23] MEDS: ATORVASTATIN CALCIUM 40MG TABLET PO SCH (20:32)
[2020-02-24] VITALS: BP 132/80
[2020-02-24] MEDS: POLYVINYL ALCOHOL OPHTH DROPS 15ML BOTHEYE SCH ×4 (00:39→17:13)
[2020-02-24] MEDS: HYDROCODONE/ACETAMINOPHEN 5/325MG TABLET PO PRN ×5 (00:39→21:54)
[2020-02-24 04:00] VITALS: BP 139/57
[2020-02-24 07:55] VITALS: BP 120/53
[2020-02-24] MEDS: AMLODIPINE 10MG TABLET PO SCH (08:54)
[2020-02-24] MEDS: DOCUSATE SODIUM 250MG CAPSULE PO SCH (08:54)
[2020-02-24] MEDS: LOSARTAN POTASSIUM 100 MG TABLET PO SCH (08:55)
[2020-02-24 12:00] VITALS: BP 144/63
[2020-02-24 16:00] VITALS: BP 135/64
[2020-02-24] MEDS: RIVAROXABAN 10 MG TABLET PO SCH (17:13)
[2020-02-24 20:00] VITALS: BP 139/54
[2020-02-24] MEDS: FAMOTIDINE 20MG TABLET PO SCH ×2 (21:00→21:54)
[2020-02-24] MEDS: ATORVASTATIN CALCIUM 40MG TABLET PO SCH (21:54)
[2020-02-25] VITALS: BP 126/58
[2020-02-25] MEDS: DIPHENHYDRAMINE 25MG CAPSULE PO PRN ×2 (00:22→23:32)
[2020-02-25 04:00] VITALS: BP 142/58
[2020-02-25] MEDS: POLYVINYL ALCOHOL OPHTH DROPS 15ML BOTHEYE SCH ×4 (05:57→17:38)
[2020-02-25 08:00] VITALS: BP 150/67
[2020-02-25] MEDS: DOCUSATE SODIUM 250MG CAPSULE PO SCH ×2 (08:28→08:38)
[2020-02-25] MEDS: LOSARTAN POTASSIUM 100 MG TABLET PO SCH (08:28)
[2020-02-25] MEDS: AMLODIPINE 10MG TABLET PO SCH (08:29)
[2020-02-25] MEDS: HYDROCODONE/ACETAMINOPHEN 5/325MG TABLET PO PRN (08:29)
[2020-02-25 12:00] VITALS: BP 127/62
[2020-02-25] MEDS ORDERED: LORAZEPAM 0.5MG TABLET PO PRN (12:00)
[2020-02-25] MEDS: HYDROCODONE/ACETAMINOPHEN 10/325MG TABLET PO PRN ×3 (12:46→23:35)
[2020-02-25 16:00] VITALS: BP 128/49
[2020-02-25] MEDS: RIVAROXABAN 10 MG TABLET PO SCH (17:36)
[2020-02-25 20:00] VITALS: BP 134/87
[2020-02-25] MEDS: ATORVASTATIN CALCIUM 40MG TABLET PO SCH (20:56)
[2020-02-25] MEDS: FAMOTIDINE 20MG TABLET PO SCH (20:56)
[2020-02-26] VITALS: BP 134/63
[2020-02-26 04:00] VITALS: BP 137/49
[2020-02-26] MEDS: POLYVINYL ALCOHOL OPHTH DROPS 15ML BOTHEYE SCH ×4 (06:15→18:00)
[2020-02-26 08:00] VITALS: BP 125/60
[2020-02-26] MEDS: DOCUSATE SODIUM 250MG CAPSULE PO SCH (09:49)
[2020-02-26] MEDS: LOSARTAN POTASSIUM 100 MG TABLET PO SCH (09:49)
[2020-02-26] MEDS: AMLODIPINE 10MG TABLET PO SCH (09:49)
[2020-02-26] MEDS: HYDROCODONE/ACETAMINOPHEN 10/325MG TABLET PO PRN (10:25)
[2020-02-26 12:00] VITALS: BP 127/74
[2020-02-26 16:00] VITALS: BP 133/73
[2020-02-26 16:52] VITALS: BP 133/73
[2020-02-26] MEDS: RIVAROXABAN 10 MG TABLET PO SCH (17:00)
== END 2020-02-26 18:45 | disposition home health service (06) | DRG 469 ==
LOC: ER 00:37 → 3WST 04:43 → ENRESERV 12:43 → 7WST 18:46 → 8WST 02-19 11:56
PROVIDERS: ADMIT Internal Medicine; ATTEND Internal Medicine
PROC: 0SRS0JZ Replacement of Left Hip Joint, Femoral Surface with Synthetic Substitute, Open Approach (ICD-10-PCS; principal; 2020-02-19)
DX: S72.002A Fracture of unspecified part of neck of left femur, initial encounter for closed fracture (principal); I50.33 Acute on chronic diastolic (congestive) heart failure; I26.99 Other pulmonary embolism without acute cor pulmonale; E44.1 Mild protein-calorie malnutrition; N39.0 Urinary tract infection, site not specified; D64.9 Anemia, unspecified; E78.5 Hyperlipidemia, unspecified; E87.8 Other disorders of electrolyte and fluid balance, not elsewhere classified; Y90.4 Blood alcohol level of 80-99 mg/100 ml; W01.0XXA Fall on same level from slipping, tripping and stumbling without subsequent striking against object, initial encounter; J45.909 Unspecified asthma, uncomplicated; E87.6 Hypokalemia; I11.0 Hypertensive heart disease with heart failure; I71.2 Thoracic aortic aneurysm, without rupture; K40.90 Unilateral inguinal hernia, without obstruction or gangrene, not specified as recurrent; K57.90 Diverticulosis of intestine, part unspecified, without perforation or abscess without bleeding; E78.00 Pure hypercholesterolemia, unspecified; R73.9 Hyperglycemia, unspecified; F10.10 Alcohol abuse, uncomplicated; I71.9 Aortic aneurysm of unspecified site, without rupture; I34.0 Nonrheumatic mitral (valve) insufficiency; Z20.828 Contact with and (suspected) exposure to other viral communicable diseases; G90.8 Other disorders of autonomic nervous system; Z68.24 Body mass index [BMI] 24.0-24.9, adult; Z86.79 Personal history of other diseases of the circulatory system; Z79.01 Long term (current) use of anticoagulants; Z72.0 Tobacco use; Z79.891 Long term (current) use of opiate analgesic; Z79.899 Other long term (current) drug therapy; Z79.2 Long term (current) use of antibiotics; Z71.6 Tobacco abuse counseling; Y92.009 Unspecified place in unspecified non-institutional (private) residence as the place of occurrence of the external cause; Z86.711 Personal history of pulmonary embolism; Y93.89 Activity, other specified; Y99.8 Other external cause status
CPT/HCPCS: 36415; 71045; 72170; 72192; 73502; 80048; 80053; 80061; 80305; 80320; 81003; 82550; 82553; 83036; 83880; 84439; 84443; 84484; 85025; 85027; 86850; 86900; 87077; 87186; 87635; 88305; 88311; 93005; 93306; 93970; 96374; 97110; 97116; 97162; 97530; 99285; C1776; J0330; J0360; J0690; J1650; J1885; J2250; J2270; J2274; J2405; J2704; J2765; J2795; J3010; J3370; J3480; J3490; J7040; J7050; J7060; Q0163; Q9967; G0480